=== PATIENT | female | born 1985 | race Caucasian/White ===

== ENCOUNTER → 2018-06-14 | Outpatient (CLI) | payer OTHER ==
[~2018-06-14] MED LIST: GADOBUTROL 10 ML VIAL IVP ONE; LIDOCAINE 1% 300 MG/30 ML SDV ONE
[2018-06-14 14:08] LABS: INR 0.97 (0.83-1.16); PROTIME(PATIENT) 13.1 SEC (12.0-15.0)
== END ==
LOC: FIMAGING 11:15
PROVIDERS: ATTEND Ophthalmology Pediatric Ophthalmology and Strabismus Specialist
PROC: 009U3ZX Drainage of Spinal Canal, Percutaneous Approach, Diagnostic (ICD-10-PCS; principal; 2018-06-14)
DX: R51 Headache (principal); H47.11 Papilledema associated with increased intracranial pressure
CPT/HCPCS: A9585

== ENCOUNTER → 2018-06-18 | Day surgery (SDC) | payer OTHER ==
[~2018-06-18] MED LIST changes: -GADOBUTROL 10 ML VIAL IVP ONE; +IOPAMIDOL (ISOVUE-M 300) 15 ML VIAL ONE
== END | disposition home or self-care (01) ==
LOC: FIMAGING 15:12
PROVIDERS: ATTEND Radiology Diagnostic Radiology
PROC: 3E0R3GC Introduction of Other Therapeutic Substance into Spinal Canal, Percutaneous Approach (ICD-10-PCS; principal; 2018-06-18)
DX: G97.1 Other reaction to spinal and lumbar puncture (principal)
CPT/HCPCS: Q9967